=== PATIENT | female | born 1985 | race Caucasian/White ===

== ENCOUNTER 2016-11-16 13:55 | Emergency (ER) | payer MEDICARE ==
[2015-09-14 17:25] VITALS: BMI 26.7
[~2016-11-16 13:55] MED LIST: ACETAMINOPHEN500 M1 PO; ADVIL200 MG PO; DEPAKOTE500 MG PO; ESTRADERM 0.10.1 MG TD; METOPROLOL TART50 MG PO; NEURONTIN 300300 MG PO; OMEPRAZOLE40 MG PO; PERCOCET 5-3251 TAB PO; TOPAMAX50 MG PO
[2016-11-16 14:22] LABS: BASOPHILS 0.2 % (0.0-2.0); EOSINOPHILS 0.8 % (0-7); HEMOGLOBIN 14.5 g/dL (12-16); IMMATURE GRANULOCYTES 0.2 % (0-5); LYMPHOCYTES 32.1 % (15-50); MCH 32.2 pg (26.0-34.0); MCHC 35.4 g/dL (31.0-37.0); MCV 90.9 fL (80.0-100.0); MONOCYTES 5.6 % (2-11); NEUTROPHILS 61.1 % (40-80); RBC 4.51 10x6/uL (4.00-5.40); RDW 13.7 % (11.5-14.5); WBC 14.8 10x3/uL (4.8-10.8)
[2016-11-16 14:28] LABS: PLATELET COUNT 320 10x3/uL (130-400)
[2016-11-16 14:54] LABS: ALBUMIN 4.3 g/dL (3.4-5.0); ALKALINE PHOSPHATASE 79 U/L (46-116); ALT (SGPT) 20 U/L (10-68); BILIRUBIN - TOTAL 0.26 mg/dL (0.2-1.3); CALC OSMOLALITY 277 mosm/kg (275-300); CALCIUM 9.9 mg/dL (8.5-10.1); CARBON DIOXIDE 21.5 mmol/L (21.0-32.0); CHLORIDE - SERUM 104 mmol/L (98-107); CREATININE - SERUM 0.9 mg/dL (0.6-1.3); GLUCOSE 85 mg/dL (74-106); POTASSIUM - SERUM 3.7 mmol/L (3.5-5.1); PROTEIN - SERUM 7.2 g/dL (6.4-8.2); SODIUM 141 mmol/L (136-145); UREA NITROGEN 7 mg/dL (7-18); eGFR NON AFRICAN AMERICAN 77 mL/min (90-120)
[2016-11-16 15:30] LABS: APPEARANCE CLEAR (CLEAR); BILIRUBIN NEGATIVE (NEGATIVE); COLOR YELLOW (YELLOW); GLUCOSE NEGATIVE (NEGATIVE); KETONE NEGATIVE (NEGATIVE); LEUKOCYTE ESTERASE NEGATIVE (NEGATIVE); NITRITE NEGATIVE (NEGATIVE); PROTEIN NEGATIVE (NEGATIVE); UROBILINOGEN NORMAL (NORMAL)
[2016-11-16 15:32] LABS: BACTERIA MODERATE /hpf (NONE SEEN); EPITHELIAL CELLS 0-5 /hpf (0-5); RED CELLS - URINE 0-5 /hpf (0-5); WHITE CELLS - URINE 0-5 /hpf (0-5)
[2016-11-16 16:41] LABS: HCG SERUM NEGATIVE (NEGATIVE)
[2016-11-16 17:29] LABS: AMYLASE - SERUM 51 U/L (25-115); LIPASE 94 U/L (73-393)
== END 2016-11-16 18:48 | disposition home or self-care (01) ==
LOC: D.ER 13:55
PROVIDERS: Emergency Medicine; Physician Assistant
DX: R10.9 Unspecified abdominal pain (principal); R10.31 Right lower quadrant pain; F17.200 Nicotine dependence, unspecified, uncomplicated; F41.9 Anxiety disorder, unspecified; F31.9 Bipolar disorder, unspecified; M79.7 Fibromyalgia; E28.2 Polycystic ovarian syndrome; M06.9 Rheumatoid arthritis, unspecified; F43.10 Post-traumatic stress disorder, unspecified

== ENCOUNTER 2017-06-14 14:19 | Inpatient (IN) | payer MEDICARE ==
[~2017-06-14] VITALS: Ht 170.2 cm; Wt 78.5 kg
[2017-06-14] MEDS ORDERED: NORCO 7.5/325 T1 TA1 PO (14:44)
[2017-06-14] MEDS ORDERED: ZANAFLEX4 MG PO (14:45)
[2017-06-14] MEDS ORDERED: NEURONTIN 300300 MG PO (14:45)
[2017-06-14] MEDS ORDERED: ACETAMINOPHEN325 MG PO (14:46)
--- NOTE | 2017-06-14 14:50 | NUR ---
RECEIVED TO ROOM 2204 AT THIS TIME FROM DOCTOR'S OFFICE VIA WHEELCHAIR. ORIENTED PT TO ROOM AT THIS TIME. CALL LIGHT IN REACH. WILL CONTINUE WITH ORDERS.
--- NOTE | 2017-06-14 15:22 | NUR ---
PRN MORPHINE AND ZOFRAN ADMINISTERED AT THIS TIME FOR PAIN AND NAUSEA. IV TO RIGHT FOREARM PATENT. BOLUS OF NS INITIATED PER ORDERS. MOTHER AT BEDSIDE. DENIES NEEDS AT THIS TIME. WILL CONTINUE WITH PLAN OF CARE.
[2017-06-14 15:30] LABS: BASOPHILS 0.1 % (0-2); EOSINOPHILS 2.4 % (0-7); HEMATOCRIT 40.8 % (36.0-48.0); HEMOGLOBIN 14.3 g/dL (12-16); IMMATURE GRANULOCYTES 0.3 % (0-5); LYMPHOCYTES 36.2 % (15-50); MCH 32.4 pg (26.0-34.0); MCV 92.5 fL (80.0-100.0); MEAN PLATELET VOLUME 10.5 fL (7.4-10.4); MONOCYTES 6.3 % (2-11); NEUTROPHILS 54.7 % (40-80); RBC 4.41 10x6/uL (4.00-5.40); WBC 10.2 10x3/uL (4.8-10.8)
[2017-06-14 15:44] LABS: PLATELET COUNT 251 10x3/uL (130-400)
[2017-06-14 15:51] LABS: ALBUMIN 3.7 g/dL (3.4-5.0); ALKALINE PHOSPHATASE 168 U/L (46-116); ALT (SGPT) 33 U/L (10-68); AMYLASE - SERUM 35 U/L (25-115); BILIRUBIN - TOTAL 0.38 mg/dL (0.2-1.3); CALC OSMOLALITY 276 mosm/kg (275-300); CALCIUM 8.5 mg/dL (8.5-10.1); CARBON DIOXIDE 24.2 mmol/L (21.0-32.0); CHLORIDE - SERUM 105 mmol/L (98-107); CREATININE - SERUM 0.7 mg/dL (0.6-1.3); GLUCOSE 91 mg/dL (74-106); LIPASE 5 U/L (73-393); POTASSIUM - SERUM 3.3 mmol/L (3.5-5.1); PROTEIN - SERUM 6.9 g/dL (6.4-8.2); SODIUM 140 mmol/L (136-145); UREA NITROGEN 7 mg/dL (7-18); eGFR NON AFRICAN AMERICAN > 90 mL/min (90-120)
[2017-06-14 16:03] VITALS: BP 144/88; BMI 27.1
[2017-06-14 17:01] LABS: APPEARANCE CLEAR (CLEAR); BILIRUBIN NEGATIVE (NEGATIVE); COLOR YELLOW (YELLOW); GLUCOSE NEGATIVE (NEGATIVE); KETONE SMALL mg/dL (NEGATIVE); LEUKOCYTE ESTERASE TRACE (NEGATIVE); NITRITE NEGATIVE (NEGATIVE); PROTEIN NEGATIVE (NEGATIVE); UROBILINOGEN NORMAL (NORMAL)
[2017-06-14 17:02] LABS: WHITE CELLS - URINE 0-5 /hpf (0-5)
[2017-06-14 17:04] LABS: RED CELLS - URINE OCC /hpf (0-5)
[2017-06-14 17:05] LABS: BACTERIA MANY /hpf (NONE SEEN); MUCUS <1+ /lpf (NONE SEEN)
[2017-06-14 19:00] VITALS: BP 136/68
--- NOTE | 2017-06-14 19:25 | NUR ---
RECIEVED SHIFT REPORT. PT IS LYING IN BED. ALERT AND ORIENTED AND ABLE TO VERBALIZE NEEDS. IV IS PATENT AND FLUIDS ARE RUNNING PER ORDER. PT IS AMBULATORY BUT WAS INSTRUCTED TO CALL FOR ANY ASSISTANCE NEEDED. SCD'S ON. PT STATES PAIN IS 9/10. NO NEEDS ARE VERBALIZED AT THIS TIME. WILL CONTINUE TO MONITOR. SIDE RAILS ARE UP X 2. BED IS IN LOWEST POSITION. CALL LIGHT IS WITHIN REACH.
--- NOTE | 2017-06-14 20:09 | NUR ---
SHIFT ASSESSMENT COMPLETED. ANTIBIOTIC HUNG PER ORDER. PT C/O PAIN 07/09 AND NAUSEA. ADMINISTERED PRESCRIBED PRN ZOFRAN AND MORPHINE PER ORDER. DENIES FURTHER NEEDS. WILL MONITOR. SIDE RAILS X 2. BED LOW. CALL LIGHT IN REACH.
--- NOTE | 2017-06-14 20:21 | NUR ---
STOOL SENT TO LAB FOR WARRENTED TESTS.
[2017-06-15] VITALS: BP 143/63; BP 155/94
[2017-06-15 04:00] VITALS: BP 152/84
[2017-06-15 05:51] LABS: BASOPHILS 0.1 % (0-2); HEMATOCRIT 39.6 % (36.0-48.0); HEMOGLOBIN 13.7 g/dL (12-16); IMMATURE GRANULOCYTES 0.3 % (0-5); LYMPHOCYTES 41.3 % (15-50); MCH 31.9 pg (26.0-34.0); MCHC 34.6 g/dL (31.0-37.0); MCV 92.3 fL (80.0-100.0); MEAN PLATELET VOLUME 10.6 fL (7.4-10.4); MONOCYTES 8.5 % (2-11); NEUTROPHILS 47.8 % (40-80); PLATELET COUNT 254 10x3/uL (130-400); RBC 4.29 10x6/uL (4.00-5.40); RDW 13.9 % (11.5-14.5)
[2017-06-15 06:04] LABS: ALBUMIN 3.4 g/dL (3.4-5.0); ALKALINE PHOSPHATASE 291 U/L (46-116); CALCIUM 8.3 mg/dL (8.5-10.1); CARBON DIOXIDE 23.8 mmol/L (21.0-32.0); CHLORIDE - SERUM 106 mmol/L (98-107); CREATININE - SERUM 0.8 mg/dL (0.6-1.3); GLUCOSE 86 mg/dL (74-106); MAGNESIUM - SERUM 1.8 mg/dL (1.8-2.4); POTASSIUM - SERUM 3.6 mmol/L (3.5-5.1); PROTEIN - SERUM 6.7 g/dL (6.4-8.2); SODIUM 142 mmol/L (136-145); eGFR NON AFRICAN AMERICAN 88 mL/min (90-120)
[2017-06-15 06:08] LABS: ALT (SGPT) 127 U/L (10-68); CALC OSMOLALITY 278 mosm/kg (275-300); UREA NITROGEN 5 mg/dL (7-18)
[2017-06-15 07:17] LABS: ERYTHROCYTE SEDIMENTATION RATE 6 mm/hr (0-20)
--- NOTE | 2017-06-15 07:44 | NUR ---
PT AOX4 RESP EVEN AND NONLABORED PT DENIES NEEDS AT THIS TIME SRX2 BED AT LOWEST SETTING CALL LIGHT WITHIN REACH WILL CONTINUE TO MONITOR
[2017-06-15 08:00] VITALS: BP 118/70
[2017-06-15 13:16] VITALS: Ht 170.2 cm; Wt 78.5 kg
--- NOTE | 2017-06-15 19:30 | NUR ---
RECIEVED SHIFT REPORT. PT IS LYING IN BED. ALERT AND ORIENTED AND ABLE TO VERBALIZE NEEDS. IV IS PATENT AND FLUIDS ARE RUNNING PER ORDER. SCD'S OFF AT THIS TIME. PT IS AMBULATORY BUT WAS INSTRUCTED TO CALL FOR ANY ASSISTANCE NEEDED. PT STATES PAIN IS 7/10 WITH MORTISING MACHINE OPERATOR PUMP. NO NEEDS ARE VERBALIZED AT THIS TIME. WILL CONTINUE TO MONITOR. SIDE RAILS ARE UP X 2. BED IS IN LOWEST POSITION. CALL LIGHT IS WITHIN REACH.
[2017-06-15 20:00] VITALS: BP 157/78
--- NOTE | 2017-06-15 20:01 | NUR ---
SHIFT ASSESSMENT COMPLETED. ONE TIME DIFLUCAN GIVEN PER ORDER. DENIES NEEDS WILL MONITOR. SIDE RAILS X 2. BED LOW. CALL LIGHT IN REACH.
[2017-06-16] VITALS: BP 114/72
--- NOTE | 2017-06-16 | NUR ---
SLEEPING WITHOUT DISTRESS.MONITOR FOR NEEDS
[2017-06-16 04:00] VITALS: BP 142/80
--- NOTE | 2017-06-16 06:29 | NUR ---
WITHOUT NEEDS.REMAINS WITHOUT CHANGE.CONT PLAN OF CARE
[2017-06-16 06:42] LABS: BASOPHILS 0.3 % (0-2); EOSINOPHILS 1.6 % (0-7); HEMATOCRIT 40.5 % (36.0-48.0); HEMOGLOBIN 13.9 g/dL (12-16); IMMATURE GRANULOCYTES 0.4 % (0-5); LYMPHOCYTES 26.5 % (15-50); MCH 31.8 pg (26.0-34.0); MCHC 34.3 g/dL (31.0-37.0); MCV 92.7 fL (80.0-100.0); MEAN PLATELET VOLUME 10.9 fL (7.4-10.4); MONOCYTES 6.6 % (2-11); NEUTROPHILS 64.6 % (40-80); PLATELET COUNT 245 10x3/uL (130-400); RBC 4.37 10x6/uL (4.00-5.40); RDW 13.3 % (11.5-14.5); WBC 7.4 10x3/uL (4.8-10.8)
[2017-06-16 07:09] LABS: ALBUMIN 3.4 g/dL (3.4-5.0); ALKALINE PHOSPHATASE 339 U/L (46-116); BILIRUBIN - TOTAL 0.67 mg/dL (0.2-1.3); CALCIUM 8.3 mg/dL (8.5-10.1); CARBON DIOXIDE 26.3 mmol/L (21.0-32.0); CHLORIDE - SERUM 103 mmol/L (98-107); CREATININE - SERUM 0.8 mg/dL (0.6-1.3); GLUCOSE 92 mg/dL (74-106); POTASSIUM - SERUM 3.5 mmol/L (3.5-5.1); PROTEIN - SERUM 6.8 g/dL (6.4-8.2); SODIUM 138 mmol/L (136-145); eGFR NON AFRICAN AMERICAN 88 mL/min (90-120)
[2017-06-16 07:20] LABS: CALC OSMOLALITY 272 mosm/kg (275-300); UREA NITROGEN 3 mg/dL (7-18)
[2017-06-16 07:21] LABS: ALT (SGPT) 171 U/L (10-68)
--- NOTE | 2017-06-16 07:30 | NUR ---
RECIEVED PT DURING WALKING ROUNDS, PT RESTING IN BED WITH NO COMPLAINTS OF PAIN OR DISCOMFORT AT THIS TIME. TRAFFIC SIGN SUPERVISOR IN USE. ASSESSMENT DONE PER FLOWSHEET. BED IN LOW POSITION AND CALL LIGHT WITHIN REACH. WILL CONTINUE TO MONITOR.
[2017-06-16 09:35] VITALS: BP 141/80
--- NOTE | 2017-06-16 12:22 | NUR ---
Patient Name: RHIANNON BENITEZ Admission Status: Urgent Accout number: [id number] Admission Date: 06-15-2017 : 1985 Admission Diagnosis:NONINFECTIVE GASTROENTERITIS AND COLITIS, UNSPECIFIED Attending: JUAN ANTONIO Current LOS: 1 Anticipated DC Date: Planned Disposition: Home Primary Insurance: MEDICARE A & B Discharge Planning Comments: CM met with patient to assess discharge planning needs. Patient lives at home with her family. Her Aditya will be the one to drive her home at discharge. She states she does not have a steps in her home and it is safe to return. She denies any services or DME. CM will continue to follow and assist as needed. PCP: [facility] [facility] Aditya Benitez () [phone] Flight Operations Engineer: Paulina Sagastume * Is the patient Alert and Oriented? Yes 0 * How many steps to enter\exit or inside your home? 0 0 * PCP DIANE 0 * Pharmacy [facility] * Preadmission Environment Home with Family 0 * ADLs Independent 0 * Community resources currently utilized None 0 * Additional services required to return to the preadmission environment? No 0 * Can the patient safely return to the preadmission environment? Yes 0 * Has this patient been hospitalized within the prior 30 days at any hospital? No 0 Grand Total: 0
[2017-06-16 12:46] VITALS: BP 140/80
--- NOTE | 2017-06-16 16:20 | NUR ---
IV RESITED AT THIS TIME TO LEFT FOREARM BY OVIDIO HOLBROOK RN. FLUIDS RESTARTED AT THIS TIME. BED IN LOW POSITION AND CALL LIGHT WITHIN REACH. WILL CONTINUE TO MONITOR.
[2017-06-16 16:29] VITALS: BP 157/90
--- NOTE | 2017-06-16 19:53 | NUR ---
PATIENT RESTING IN BED AND DENIES NEEDS AT THIS TIME. BED IN LOWEST POSITION AND CALL LIGHT WITHIN REACH. ENCOURAGED THE PATIENT TO CALL IF SHE HAS NEEDS.
[2017-06-16 20:00] VITALS: BP 140/89
[2017-06-17 00:10] VITALS: BP 131/73
[2017-06-17 04:00] VITALS: BP 143/76
--- NOTE | 2017-06-17 07:30 | NUR ---
RECIEVED PT DURING WALKING ROUNDS. PT RESTING IN BED WITH NO COMPLAINTS OF PAIN OR DISCOMFORT AT THIS TIME. PHYSICAL EDUCATION AIDE IN USE. ASSESSMENT DONE PER FLOWSHEET. BED IN LOW POSITION AND CALL LIGHT WITHIN REACH. WILL CONTINUE TO MONITOR.
[2017-06-17 09:08] LABS: BASOPHILS 0.3 % (0-2); EOSINOPHILS 2.1 % (0-7); HEMATOCRIT 42.4 % (36.0-48.0); HEMOGLOBIN 14.8 g/dL (12-16); IMMATURE GRANULOCYTES 0.3 % (0-5); MCH 31.9 pg (26.0-34.0); MCHC 34.9 g/dL (31.0-37.0); MCV 91.4 fL (80.0-100.0); MEAN PLATELET VOLUME 11.1 fL (7.4-10.4); MONOCYTES 7.7 % (2-11); NEUTROPHILS 66.6 % (40-80); PLATELET COUNT 240 10x3/uL (130-400); RBC 4.64 10x6/uL (4.00-5.40); RDW 13.7 % (11.5-14.5); WBC 7.6 10x3/uL (4.8-10.8)
[2017-06-17 09:23] LABS: ALBUMIN 3.6 g/dL (3.4-5.0); ALKALINE PHOSPHATASE 300 U/L (46-116); ALT (SGPT) 124 U/L (10-68); BILIRUBIN - TOTAL 0.51 mg/dL (0.2-1.3); CALC OSMOLALITY 278 mosm/kg (275-300); CALCIUM 8.7 mg/dL (8.5-10.1); CARBON DIOXIDE 28.5 mmol/L (21.0-32.0); CHLORIDE - SERUM 103 mmol/L (98-107); CREATININE - SERUM 0.8 mg/dL (0.6-1.3); GLUCOSE 110 mg/dL (74-106); POTASSIUM - SERUM 3.1 mmol/L (3.5-5.1); SODIUM 141 mmol/L (136-145); UREA NITROGEN 3 mg/dL (7-18); eGFR NON AFRICAN AMERICAN 88 mL/min (90-120)
[2017-06-17 10:19] VITALS: BP 121/67
[2017-06-17 14:08] VITALS: BP 137/83
[2017-06-17 17:15] VITALS: BP 116/77
[2017-06-17 20:00] VITALS: BP 150/75
--- NOTE | 2017-06-17 20:38 | NUR ---
REC'D IN BED AWAKE AND ALERT. RESP EVEN AND UNLABORED WITH NO DISTRESS NOTED. CAN EXPRESS NEEDS AND WANTS. C/O PAIN RATING 4/10 ON PAIN SCALE. MORPHINE BAKER BISCUIT CHANGES OUT AT THIS TIME. ASSESSMENT COMPLETED. C/L IN REACH AT BEDSIDE.
[2017-06-18] VITALS: BP 159/75
--- NOTE | 2017-06-18 01:00 | NUR ---
BROUGHT PATIENT ICE PER HER REQUEST. PATIENT SHOWS NO SIGNS OF DISTRESS. BED IN LOWEST POSITION AND CALL LIGHT WITHIN REACH. ENCOURAGED THE PATIENT TO CALL IF SHE HAS FURTHER NEEDS.
[2017-06-18 04:00] VITALS: BP 166/64
--- NOTE | 2017-06-18 04:00 | NUR ---
NO CHANGES NOTED RESTING WELL AT THIS TIME. WILL CONTINUE TO OBSERVE FOR NEEDS. C/L IN REACH AT BEDSIDE.
[2017-06-18 04:54] LABS: BASOPHILS 0.4 % (0-2); EOSINOPHILS 2.8 % (0-7); HEMATOCRIT 41.8 % (36.0-48.0); HEMOGLOBIN 14.5 g/dL (12-16); IMMATURE GRANULOCYTES 0.3 % (0-5); LYMPHOCYTES 31.3 % (15-50); MCH 31.8 pg (26.0-34.0); MCHC 34.7 g/dL (31.0-37.0); MCV 91.7 fL (80.0-100.0); MEAN PLATELET VOLUME 10.7 fL (7.4-10.4); MONOCYTES 9.6 % (2-11); NEUTROPHILS 55.6 % (40-80); PLATELET COUNT 234 10x3/uL (130-400); RBC 4.56 10x6/uL (4.00-5.40); RDW 13.6 % (11.5-14.5); WBC 7.6 10x3/uL (4.8-10.8)
[2017-06-18 05:38] LABS: ALBUMIN 3.4 g/dL (3.4-5.0); ALKALINE PHOSPHATASE 241 U/L (46-116); ALT (SGPT) 94 U/L (10-68); CALCIUM 8.5 mg/dL (8.5-10.1); CARBON DIOXIDE 28.6 mmol/L (21.0-32.0); CHLORIDE - SERUM 104 mmol/L (98-107); CREATININE - SERUM 0.7 mg/dL (0.6-1.3); GLUCOSE 125 mg/dL (74-106); POTASSIUM - SERUM 3.1 mmol/L (3.5-5.1); PROTEIN - SERUM 6.6 g/dL (6.4-8.2); SODIUM 139 mmol/L (136-145); eGFR NON AFRICAN AMERICAN > 90 mL/min (90-120)
[2017-06-18 05:43] LABS: CALC OSMOLALITY 275 mosm/kg (275-300); UREA NITROGEN 4 mg/dL (7-18)
--- NOTE | 2017-06-18 07:30 | NUR ---
AWAKE AND ALERT. CRYING WITH PAIN. GIVEN 2MG BOLUS OF MORPHINE AND ENCOURAGED HER TO RELAX. WILL MONITOR. LUNGS ARE CLEAR BILATERALLY, NO COUGH NOTED. SKIN IS INTACT WITHOUT REDNESS. IV TO LEFT WRIST IS PATNET WITHOUT REDNESS AT INSERTION SITE. DENIES NEEDS. WILL MONITOR.
--- NOTE | 2017-06-18 09:00 | NUR ---
REFUSED BREAKFAST TRAY. REPORTS PAIN IMPROVED.
[2017-06-18 10:21] VITALS: BP 146/86
[2017-06-18 12:47] VITALS: BP 139/61
[2017-06-18 15:56] VITALS: BP 131/70
--- NOTE | 2017-06-18 19:03 | NUR ---
WAS MEDICATED AT THIS TIME FOR C/O ABD PAIN. WILL CONTINUE TO OBSERVE. C/L IN REACH AT BEDSIDE.
[2017-06-18 20:00] VITALS: BP 134/64
--- NOTE | 2017-06-18 20:00 | NUR ---
REC'D AWAKE AND ALERT. RESP EVEN AND UNLABORED WITH NO DISTRESS NOTED.CAN EXPRESS NEEDS AND WANTS. ASSESSMENT COMPLETED. C/L IN REACH AT BEDSIDE.
[2017-06-19] VITALS: BP 123/69
--- NOTE | 2017-06-19 00:44 | NUR ---
RESTING WELL AT THIS TIME WITH NO C/O NOTED OR VOICED. C/L IN REACH AT BEDSIDE.
--- NOTE | 2017-06-19 02:00 | NUR ---
PT IN BED WITH NO NEEDS AT THIS TIME. SIDE RAILS X 2. BED IS LOW. CALL LIGHT IN REACH.
--- NOTE | 2017-06-19 03:35 | NUR ---
C/O ABD PAIN RATING 8/10 ON PAIN SCALE WAS MEDICATED WITH NORCO AT THIS TIME.
[2017-06-19 04:00] VITALS: BP 128/72
[2017-06-19 06:34] LABS: BASOPHILS 0.1 % (0-2); EOSINOPHILS 2.7 % (0-7); HEMATOCRIT 40.8 % (36.0-48.0); IMMATURE GRANULOCYTES 0.1 % (0-5); LYMPHOCYTES 31.2 % (15-50); MCH 31.8 pg (26.0-34.0); MCHC 34.3 g/dL (31.0-37.0); MCV 92.7 fL (80.0-100.0); MEAN PLATELET VOLUME 10.8 fL (7.4-10.4); MONOCYTES 7.3 % (2-11); NEUTROPHILS 58.6 % (40-80); PLATELET COUNT 230 10x3/uL (130-400); RDW 13.8 % (11.5-14.5); WBC 7.1 10x3/uL (4.8-10.8)
[2017-06-19 07:02] LABS: ALBUMIN 3.5 g/dL (3.4-5.0); ALKALINE PHOSPHATASE 205 U/L (46-116); ALT (SGPT) 76 U/L (10-68); BILIRUBIN - TOTAL 0.39 mg/dL (0.2-1.3); CALC OSMOLALITY 276 mosm/kg (275-300); CALCIUM 8.7 mg/dL (8.5-10.1); CARBON DIOXIDE 27.9 mmol/L (21.0-32.0); CHLORIDE - SERUM 104 mmol/L (98-107); CREATININE - SERUM 0.8 mg/dL (0.6-1.3); GLUCOSE 112 mg/dL (74-106); POTASSIUM - SERUM 3.3 mmol/L (3.5-5.1); PROTEIN - SERUM 6.6 g/dL (6.4-8.2); SODIUM 140 mmol/L (136-145); UREA NITROGEN 4 mg/dL (7-18); eGFR NON AFRICAN AMERICAN 88 mL/min (90-120)
--- NOTE | 2017-06-19 07:30 | NUR ---
RECIEVED PT DURING WALKING ROUNDS, PT IN BED WITH COMPLAINTS OF PAIN OF A 8 ON A SCALE OF 1-10. MEDICATION TO BE GIVEN PER ORDER. ASSESSMENT DONE PER FLOWSHEET. BED IN LOW POSITION AND CALL LIGHT WITHIN REACH, WILL CONTINUE TO MONITOR.
[2017-06-19 08:17] VITALS: BP 126/58
[2017-06-19 12:03] VITALS: BP 139/91
--- NOTE | 2017-06-19 13:05 | NUR ---
BOWL PREP STARTED AT THIS TIME, WILL CONTINUE TO MONITOR.
[2017-06-19 16:14] VITALS: BP 156/95
[2017-06-19 20:00] VITALS: BP 153/69
[2017-06-20] VITALS: BP 137/79
[2017-06-20 04:00] VITALS: BP 137/70
[2017-06-20 05:46] LABS: BASOPHILS 0.2 % (0-2); EOSINOPHILS 1.9 % (0-7); HEMATOCRIT 40.1 % (36.0-48.0); HEMOGLOBIN 13.8 g/dL (12-16); IMMATURE GRANULOCYTES 0.2 % (0-5); LYMPHOCYTES 30.4 % (15-50); MCH 32.1 pg (26.0-34.0); MCHC 34.4 g/dL (31.0-37.0); MCV 93.3 fL (80.0-100.0); MEAN PLATELET VOLUME 11.2 fL (7.4-10.4); MONOCYTES 6.6 % (2-11); NEUTROPHILS 60.7 % (40-80); PLATELET COUNT 224 10x3/uL (130-400); RDW 14.2 % (11.5-14.5); WBC 8.5 10x3/uL (4.8-10.8)
[2017-06-20 06:14] LABS: ALBUMIN 3.4 g/dL (3.4-5.0); ALKALINE PHOSPHATASE 169 U/L (46-116); ALT (SGPT) 66 U/L (10-68); CALC OSMOLALITY 275 mosm/kg (275-300); CALCIUM 8.8 mg/dL (8.5-10.1); CARBON DIOXIDE 24.1 mmol/L (21.0-32.0); CHLORIDE - SERUM 105 mmol/L (98-107); CREATININE - SERUM 0.7 mg/dL (0.6-1.3); GLUCOSE 108 mg/dL (74-106); POTASSIUM - SERUM 3.5 mmol/L (3.5-5.1); PROTEIN - SERUM 6.2 g/dL (6.4-8.2); SODIUM 139 mmol/L (136-145); UREA NITROGEN 4 mg/dL (7-18); eGFR NON AFRICAN AMERICAN > 90 mL/min (90-120)
[2017-06-20 07:22] LABS: OVA + PARASITE EXAM Final report (())
--- NOTE | 2017-06-20 08:08 | NUR ---
IV PATENT AT THIS TIME. PT REMAINS NPO FOR COLONOSCOPY TODAY. ASSESSMENT PERFORMED PER FLOWSHEET. WILL CONTINUE WITH PLAN OF CARE.
--- NOTE | 2017-06-20 08:43 | NUR ---
PRN NORCO ADMINISTERED FOR PAIN AT THIS TIME WITH SMALL SIP OF WATER.
[2017-06-20 09:29] VITALS: BP 126/76
[2017-06-20 12:14] LABS: HEPATITIS C ANTIBODY <0.1 (0.0-0.9)
[2017-06-20 12:24] VITALS: BP 153/93
--- NOTE | 2017-06-20 12:45 | NUR ---
Patient being discharged home today and denies any HH needs. Family at bedside who will drive her home
--- NOTE | 2017-06-20 12:45 | NUR ---
IV TO LEFT UPPER AC TENDER TO TOUCH, BUT NO S/S OF INFILTRATION PRESENT. IV FLUIDS TURNED OFF AT THIS TIME. FAMILY AT BEDSIDE. WILL CONTINUE WITH PLAN OF CARE.
--- NOTE | 2017-06-20 12:51 | NUR ---
PRN NORCO ADMINISTERED PER ORDER FOR PAIN.
--- NOTE | 2017-06-20 13:00 | NUR ---
IV ATTEMPTED X2 WITH NO SUCCESS. NOTIFIED JANAY NOLAN WITH VASCULAR ACCESS.
--- NOTE | 2017-06-20 15:40 | NUR ---
TAKEN TO GI LAB AT THIS TIME. WILL MONITOR PT WHEN SHE RETURNS.
[2017-06-20 16:14] VITALS: BP 159/92
--- NOTE | 2017-06-20 17:01 | NUR ---
REPORT RECEIVED FROM VALE BUSCH RN AT THIS TIME. PT TO RETURN TO ROOM 2204.
[2017-06-20 17:14] VITALS: BP 111/71
--- NOTE | 2017-06-20 17:14 | NUR ---
BACK TO ROOM 2204 FROM RECOVERY AT THIS TIME. VITAL SIGNS STABLE AND PT ALERT AND ORIENTED.
[2017-06-20] MEDS ORDERED: HYDROCODONE-APA1 TAB PO (17:26)
[2017-06-20] MEDS ORDERED: FLAGYL500 MG PO (17:27)
--- NOTE | 2017-06-20 18:03 | NUR ---
PT HAS VOIDED AND TOLERATING DIET WITHOUT NAUSEA. WISHES TO D/C HOME AT THIS TIME.
== END 2017-06-20 18:00 | disposition home or self-care (01) | DRG 392 ==
LOC: D.MS 14:19 → OBSVTIME 14:21 → D.MS 14:32
PROVIDERS: Emergency Medicine; Family Medicine; Internal Medicine Gastroenterology; ADMIT Family Medicine
PROC: 0DBK8ZX Excision of Ascending Colon, Via Natural or Artificial Opening Endoscopic, Diagnostic (ICD-10-PCS; principal; 2017-06-20)
PROC: 0DBN8ZX Excision of Sigmoid Colon, Via Natural or Artificial Opening Endoscopic, Diagnostic (ICD-10-PCS; 2017-06-20)
PROC: 0DBM8ZX Excision of Descending Colon, Via Natural or Artificial Opening Endoscopic, Diagnostic (ICD-10-PCS; 2017-06-20)
PROC: 0DBM8ZZ Excision of Descending Colon, Via Natural or Artificial Opening Endoscopic (ICD-10-PCS; 2017-06-20)
DX: K52.9 Noninfective gastroenteritis and colitis, unspecified (principal); E87.6 Hypokalemia; B37.3 Candidiasis of vulva and vagina; T36.95XA Adverse effect of unspecified systemic antibiotic, initial encounter; K76.0 Fatty (change of) liver, not elsewhere classified

== ENCOUNTER → 2018-01-24 12:10 | Outpatient (CLI) | payer MEDICARE ==
[2017-06-15 13:16] VITALS: BMI 27.1
[~2018-01-24 12:10] MED LIST changes: +ACETAMINOPHEN325 MG PO; +FLAGYL500 MG PO; +HYDROCODONE-APA1 TAB PO; +NORCO 7.5/325 T1 TA1 PO; +ZANAFLEX4 MG PO
== END | disposition home or self-care (01) ==
LOC: D.MRI 01-10 11:00
DX: M54.16 Radiculopathy, lumbar region (principal)

== ENCOUNTER 2020-01-09 18:38 | Inpatient (IN) | payer MEDICARE ==
[~2020-01-09] VITALS: Ht 170.2 cm; Wt 79.5 kg
--- NOTE | 2020-01-09 19:55 | NUR ---
URINE SENT TO LAB AT THIS TIME.
[2020-01-09 20:18] LABS: BILIRUBIN NEGATIVE (NEGATIVE); GLUCOSE NEGATIVE (NEGATIVE); KETONE NEGATIVE (NEGATIVE); NITRITE NEGATIVE (NEGATIVE); SPECIFIC GRAVITY 1.005 (1.005-1.020); UROBILINOGEN NORMAL (NORMAL)
[2020-01-09 20:22] LABS: BACTERIA FEW /hpf (NEGATIVE); EPITHELIAL CELLS 0-5 /hpf (0-5); WHITE CELLS - URINE 0-5 /hpf (NEGATIVE)
[2020-01-09 20:30] LABS: HEMATOCRIT 46.1 % (36.0-48.0); HEMOGLOBIN 16.6 g/dL (12-16); MCH 31.6 pg (26.0-34.0); MCV 87.6 fL (80.0-100.0); MEAN PLATELET VOLUME 10.2 fL (7.4-10.4); PLATELET COUNT 309 10x3/uL (130-400); RBC 5.26 10x6/uL (4.00-5.40); RDW 12.9 % (11.5-14.5); WBC 21.1 10x3/uL (4.8-10.8)
[2020-01-09 20:32] LABS: UDS - AMPHET POSITIVE QUAL (NEGATIVE); UDS - BARB NEGATIVE QUAL (NEGATIVE); UDS - BENZO NEGATIVE QUAL (NEGATIVE); UDS - COCAINE NEGATIVE QUAL (NEGATIVE); UDS - OPIATE NEGATIVE QUAL (NEGATIVE); UDS - PCP NEGATIVE QUAL (NEGATIVE); UDS - THC POSITIVE QUAL (NEGATIVE)
[2020-01-09 20:40] LABS: CALC OSMOLALITY 280 mosm/kg (275-300); CALCIUM 9.8 mg/dL (8.5-10.1); CARBON DIOXIDE 24.6 mmol/L (21.0-32.0); CHLORIDE - SERUM 104 mmol/L (98-107); CREATININE - SERUM 0.9 mg/dL (0.6-1.3); GLUCOSE 99 mg/dL (74-106); SODIUM 142 mmol/L (136-145); UREA NITROGEN 8 mg/dL (7-18); eGFR NON AFRICAN AMERICAN 75 mL/min (90-120)
[2020-01-09 20:45] LABS: ALBUMIN 4.4 g/dL (3.4-5.0); ALKALINE PHOSPHATASE 144 U/L (30-120); ALT (SGPT) 44 U/L (10-68); BILIRUBIN - TOTAL 0.32 mg/dL (0.2-1.3); PROTEIN - SERUM 7.8 g/dL (6.4-8.2)
[2020-01-09 20:54] LABS: BASOPHILS 1 % (0-2); LYMPHOCYTES 22 % (15-50); MONOCYTES 8 % (2-11); NEUTROPHILS 69 % (40-80); PLATELET ESTIMATE NORMAL
[2020-01-09 22:27] VITALS: BP 132/78
[2020-01-10 00:18] VITALS: Ht 170.2 cm; Wt 79.5 kg
[2020-01-10 04:00] VITALS: BP 101/56; BP 143/65
--- NOTE | 2020-01-10 07:15 | NUR ---
RECEIVED PT IN BED EYES CLOSED RESP UNLABORED SKIN W/D COLOR WNL LT FACE SLIGHTLY SWOLLEN WILL CONTINUE MONITOR
[2020-01-10 09:10] VITALS: BP 113/56
[2020-01-10 11:46] LABS: BASOPHILS 0.2 % (0-2); EOSINOPHILS 1.8 % (0-7); HEMATOCRIT 40.3 % (36.0-48.0); HEMOGLOBIN 13.9 g/dL (12-16); IMMATURE GRANULOCYTES 0.2 % (0-5); LYMPHOCYTES 25.9 % (15-50); MCH 30.9 pg (26.0-34.0); MCHC 34.5 g/dL (31.0-37.0); MEAN PLATELET VOLUME 10.4 fL (7.4-10.4); NEUTROPHILS 65.9 % (40-80); PLATELET COUNT 267 10x3/uL (130-400); RDW 13.2 % (11.5-14.5)
[2020-01-10 11:47] LABS: CALC OSMOLALITY 278 mosm/kg (275-300); CALCIUM 8.5 mg/dL (8.5-10.1); CARBON DIOXIDE 28.3 mmol/L (21.0-32.0); CHLORIDE - SERUM 104 mmol/L (98-107); CREATININE - SERUM 0.8 mg/dL (0.6-1.3); GLUCOSE 110 mg/dL (74-106); POTASSIUM - SERUM 3.9 mmol/L (3.5-5.1); SODIUM 140 mmol/L (136-145); eGFR NON AFRICAN AMERICAN 86 mL/min (90-120)
[2020-01-10] MEDS ORDERED: CLEOCIN HCL300 MG PO (11:48)
[2020-01-10 11:49] LABS: MCV 89.6 fL (80.0-100.0); UREA NITROGEN 11 mg/dL (7-18); WBC 13.1 10x3/uL (4.8-10.8)
[2020-01-10 12:54] VITALS: BP 123/78
--- NOTE | 2020-01-10 15:19 | MORECARE ---
CASE MANAGEMENT DISCHARGE SUMMARY PATIENT: RHIANNON SMYTH UNIT: [id number] ADM DATE: 01/09/20 AGE: 34 : [birth year] SEX: F ROOM/BED: D.2121 AUTHOR: SAURABH BRYAN PHYSICIAN: REFERRING PHYSICIAN: JUDY MEAD MD DATE OF SERVICE: 01/10/20 Discharge Plan Patient Name: RHIANNON SMYTH Facility: [facility]:[place] : 1985 Planned Disposition: Home Anticipated Discharge Date: 01/10/20 Discharge Date: Expected LOS: 1 Initial Reviewer: [email or web address] Initial Review Date: 01/10/2020 Generated: 01/10/20 4:19 pm Patient Name: RHIANNON SMYTH Page [id number] at 1519 All edits/amendments must be made on the electronic document DICTATION DATE: 01/10/20 1519 ROLL SKINNER: CHRISTEN 01/10/20 1519 RPT#: [id number] DC DATE: STATUS: ADM IN [facility] [address] [place] [address] END OF REPORT
--- NOTE | 2020-01-10 15:37 | MORECARE ---
CASE MANAGEMENT DISCHARGE SUMMARY PATIENT: RHIANNON SMYTH UNIT: [id number] ADM DATE: 01/09/20 AGE: 34 : 83 SEX: F ROOM/BED: D.2908 AUTHOR: RANDI,DOC PHYSICIAN: REFERRING PHYSICIAN: JUDY MEAD MD DATE OF SERVICE: 01/10/20 Discharge Plan Patient Name: RHIANNON SMYTH Facility: [facility]:[place] : 1985 Planned Disposition: Home Anticipated Discharge Date: 01/10/20 Discharge Date: Expected LOS: 1 Initial Reviewer: [email or web address] Initial Review Date: 01/10/2020 Generated: 01/10/20 4:36 pm Comments DCP- Discharge Planning Updated by [email or web address]: Benjy Anders on 01/10/20 2:[address] Patient Name: RHIANNON SMYTH Admission Status: ER Accout number: [id number] Admission Date: 01-09-2020 : 1985 Admission Diagnosis: Attending: JUDY MEAD Current LOS: 1 Anticipated DC Date: 01-10-2020 Planned Disposition: Home Primary Insurance: [employer] PPO MCR ADVANT Discharge Planning Comments: CM MET WITH PT IN ROOM TO DISCUSS DISCHARGE PLANNING AND NEEDS. PT REPORTS LIVING AT HOME INDEPENDENTLY WITH HER SPOUSE. PT HAS NO MEDICAL EQUIPMENT AND NO OUTSIDE SERVICES ASSISTING IN THE HOME. CM DISCUSSED AVAILABILITY OF HOME HEALTH, REHAB SERVICES AND MEDICAL EQUIPMENT. PT DENIES DISCHARGE NEEDS, REPORTS HER SPOUSE WILL PICK HER UP FOR DISCHARGE HOME. JANITORIAL SUPERVISOR NURSE NOTIFIED. Podiatry Assistant: Benjy Anders DCPIA - Discharge Planning Initial Assessment Updated by [email or web address]: Benjy Anders on 01/10/20 3:30 pm * Is the patient Alert and Oriented? Yes * How many steps to enter\exit or inside your home? * PCP DR. CONTRERAS * Pharmacy [facility] * Preadmission Environment Home with Family * ADLs Independent * Equipment None * Other Equipment [facility] - MEDICAL EQUIPMENT PROVIDER PREFERENCE * List name and contact numbers for known caregivers / representatives who currently or will assist patient after discharge: ROSCOE SMYTH, SPOUSE, * Verbal permission to speak to the caregivers and representatives has been obtained from the patient. N/A * Community resources currently utilized None * Please name any agencies selected above. NONE * Additional services required to return to the preadmission environment? No * Can the patient safely return to the preadmission environment? Yes * Has this patient been hospitalized within the prior 30 days at any hospital? No Last DP export: 01/10/20 2:19 p Patient Name: RHIANNON SMYTH Page [id number] at 1537 All edits/amendments must be made on the electronic document DICTATION DATE: 01/10/201535 MESH WORKER: CHRISTEN 01/10/201535 RPT#: [id number] DC DATE: STATUS: ADM IN [facility] [address] [place] [address] END OF REPORT
--- NOTE | 2020-01-10 15:52 | NUR ---
WENT TO PT ROOM FOR DISCHARGE RIDE HERE PT IS AAOX4 RESP UNLABORED RESPONSIVE TO D/C INSTRUCTIONS PAPERWORK GIVEN TO SIGN PT APPEARED NOT TO BE ABLE TO SIGN KEPT SAYING SHE COULD AND JUST KEPT HOLDING PEN. FAMILY VERY CONCERNED DR MEAD HERE TO SEE PT AT THIS TIME
--- NOTE | 2020-01-10 16:29 | NUR ---
REVIEWED DISCHARGE INSTRUCTIONS WITH PT STATES UNDERSTANDING SIGNED PAPERWORK WITHOUT DIFFICULTY MOTHER AND GRANDMOTHER STATES UNDERSTANDING DCD SALINE LOCK TO LFA WITH IV CATHETER INTACT SITE FREE OF REDNESS OR EDEMA PT DISCHARGED HOME IN STABLE CONDITION VIA W/C WITH ALL PERSONAL BELONGINGS
== END 2020-01-10 16:39 | disposition home or self-care (01) | DRG 157 ==
LOC: D.ER 18:38 → D.M2 23:11
PROVIDERS: Emergency Medicine; ADMIT Internal Medicine Nephrology; ATTEND Internal Medicine Nephrology
DX: K08.89 Other specified disorders of teeth and supporting structures (principal); G93.41 Metabolic encephalopathy; F17.213 Nicotine dependence, cigarettes, with withdrawal; F41.8 Other specified anxiety disorders; M06.9 Rheumatoid arthritis, unspecified; M79.7 Fibromyalgia; F15.10 Other stimulant abuse, uncomplicated; F12.10 Cannabis abuse, uncomplicated